=== PATIENT | male | born 1950 | race Caucasian/White ===

== ENCOUNTER 2020-10-11 19:32 | Inpatient (IN) | payer OTHER, MEDICARE ==
[2020-10-11 20:00] VITALS: BMI 30.8
[2020-10-11] MEDS ORDERED: PIPERACILLIN/TAZOB 3.375 GM 3.375 GM in DEXTROSE 5%-WATER - 50 ML IVPB ONE (20:28)
[2020-10-11] MEDS ORDERED: VANCOMYCIN 1 GM in D5W (PRE-DOCKED) 1,000 MG/250 ML IVPB ONE (20:29)
[2020-10-11] MEDS ORDERED: ACETAMINOPHEN 1000 MG/100 ML VIAL (NON FORMULARY) IVPB ONE (20:30)
[2020-10-11] MEDS ORDERED: ACETAMINOPHEN INJECTION 100 ML IVPB ONE (20:36)
[2020-10-11] MEDS ORDERED: PIPERACILLIN/TAZOB 3.375 GM 3.375 GM/50 ML BAG IVPB ONE (20:37)
[2020-10-11 20:39] LABS: BASO % 0.6 % (0-2.0); HEMATOCRIT 41.7 % (35.4-49); HEMOGLOBIN 14.3 GM/dL (11.7-16.9); LYMPH % 13.7 % (8-40); MCH 29.3 pg (25.7-33.7); MCHC 34.3 g/dl (32.0-35.9); MEAN CELL VOLUME 85.5 fl (80-96); MONO % 6.3 % (3.8-10.2); NEUT % 79.4 % (42.8-82.8); PLATELET COUNT 167 K/MM3 (134-434); RBC 4.88 M/mm3 (4.00-5.60); RDW 14.4 % (11.9-15.9); WHITE BLOOD COUNT 3.9 K/mm3 (4.0-10.0)
[2020-10-11 20:48] LABS: INR 1.17 (0.83-1.09); PROTHROMBIN TIME (PATIENT) 14.1 SEC (9.7-13.0)
[2020-10-11 20:50] LABS: ACTIVATED PTT 28.2 SECONDS (25.2-36.5)
[2020-10-11] MEDS ORDERED: MEROPENEM 1 GM in DEXTROSE 5%-WATER 100 ML IVPB ONE (20:53)
[2020-10-11] MEDS ORDERED: DEXAMETHASONE SOD PHOSPHATE 4 MG/1 ML VIAL IVPUSH ONE (20:57)
[2020-10-11 21:00] LABS: CHLORIDE 100 mmol/L (98-107); POTASSIUM 3.8 mmol/L (3.5-5.1); SODIUM 135 mmol/L (136-145)
[2020-10-11 21:02] LABS: CALCIUM 7.7 mg/dL (8.5-10.1)
[2020-10-11 21:03] LABS: ALBUMIN 2.9 g/dl (3.4-5.0); ANION GAP 6 MMOL/L (8-16); BLOOD UREA NITROGEN 18.4 mg/dL (7-18); CO2 29 mmol/L (21-32); GLUCOSE,RANDOM 112 mg/dL (74-106)
[2020-10-11 21:04] LABS: BILIRUBIN,DIRECT 0.4 mg/dL (0.0-0.2)
[2020-10-11 21:06] LABS: SGOT/AST 77 U/L (15-37); SGPT/ALT 52 U/L (13-61)
[2020-10-11 21:07] LABS: BILIRUBIN,TOTAL 0.8 mg/dL (0.2-1); TOT PROT 6.4 g/dl (6.4-8.2)
[2020-10-11 21:09] LABS: ALK PHOS 114 U/L (45-117)
[2020-10-11] MEDS ORDERED: MEROPENEM 1 GM VIAL (RESTRICTED TO ID) IVPB ONE (21:15)
[2020-10-11] MEDS ORDERED: VANCOMYCIN 1 GRAM (PRE-DOCKED) 1,000 MG/250 ML BAG IVPB ONE (21:15)
[2020-10-11] MEDS ORDERED: DEXAMETHASONE SOD PHOSPHATE 4 MG/1 ML VIAL ONE (21:15)
[2020-10-11 21:24] LABS: VENOUS BASE EXCESS 4.3 mmol/L (-2-2); VENOUS O2 SATURATION 88.4 % (70-80); VENOUS PCO2 33.7 mmHg (38-52); VENOUS PH 7.518 (7.310-7.410)
[2020-10-12 01:39] LABS: EPI CELLS 7 /uL (0-25.1); HYALINE CASTS 3 /uL (0-3.1); URINE APPEARANCE CLEAR; URINE BACTERIA 21 /uL (0-1359); URINE BILIRUBIN NEGATIVE (NEGATIVE); URINE COLOR YELLOW; URINE GLUCOSE (UA) NEGATIVE (NEGATIVE); URINE KETONE TRACE (NEGATIVE); URINE LEUK ESTERASE NEGATIVE (NEGATIVE); URINE NITRITE NEGATIVE (NEGATIVE); URINE PROTEIN 1+ (NEGATIVE); URINE RBC 13 /uL (0-23.9); URINE WBC 6 /uL (0-25.8)
[2020-10-12] MEDS ORDERED: DEXTROSE 5%-WATER 100 ML IVPB ONE ×2 (01:55→08:59)
[2020-10-12] MEDS ORDERED: MEROPENEM 500 MG VIAL (RESTRICTED TO ID) IVPB ONE ×2 (01:55→08:59)
[2020-10-12] MEDS: MEROPENEM 500 MG in DEXTROSE 5%-WATER 100 ML IVPB SCH ×2 (01:58→10:06)
[2020-10-12] MEDS ORDERED: MEROPENEM 500 MG in DEXTROSE 5%-WATER 100 ML IVPB SCH (02:00)
[2020-10-12 09:06] LABS: BASO % 0.2 % (0-2.0); HEMATOCRIT 44.6 % (35.4-49); HEMOGLOBIN 15.4 GM/dL (11.7-16.9); MCH 29.1 pg (25.7-33.7); MCHC 34.6 g/dl (32.0-35.9); MEAN CELL VOLUME 84.2 fl (80-96); MEAN PLT VOLUME 8.8 fl (7.5-11.1); MONO % 6.3 % (3.8-10.2); NEUT % 80.5 % (42.8-82.8); PLATELET COUNT 171 K/MM3 (134-434); RBC 5.29 M/mm3 (4.00-5.60); RDW 14.8 % (11.9-15.9); WHITE BLOOD COUNT 3.3 K/mm3 (4.0-10.0)
[2020-10-12] MEDS: ENOXAPARIN NA (PORCINE) 40 MG/0.4 ML DISP.SYRIN SQ SCH (09:22)
[2020-10-12] MEDS: ZINC SULFATE 220 MG CAPSULE (FP) PO SCH (09:22)
[2020-10-12] MEDS: ASCORBIC ACID 500 MG TABLET (FP) PO SCH ×2 (09:22→21:21)
[2020-10-12 09:32] LABS: POTASSIUM 4.2 mmol/L (3.5-5.1)
[2020-10-12] MEDS ORDERED: CHOLECALCIFEROL (VIT D3) 5000 UNITS (125 MCG) CAP PO SCH (10:00)
[2020-10-12] MEDS ORDERED: VANCOMYCIN 1 GM in D5W (PRE-DOCKED) 1,000 MG/250 ML IVPB SCH (10:00)
[2020-10-12 10:18] LABS: ALBUMIN 2.9 g/dl (3.4-5.0); CALCIUM 8.2 mg/dL (8.5-10.1); MAGNESIUM 2.2 mg/dL (1.8-2.4)
[2020-10-12 10:21] LABS: CREATININE 0.9 mg/dL (0.55-1.3); TOT PROT 6.4 g/dl (6.4-8.2)
[2020-10-12 10:38] LABS: BILIRUBIN,TOTAL 0.9 mg/dL (0.2-1)
[2020-10-12] MEDS ORDERED: cefTRIAXone SODIUM 1 GM VIAL ONE (13:26)
[2020-10-12] MEDS ORDERED: DEXTROSE 5%-WATER - 50 ML IVPB ONE (13:26)
[2020-10-12] MEDS: CHOLECALCIFEROL (VIT D3) 1,000 UNIT (25 MCG) TABLET PO SCH (13:45)
[2020-10-12] MEDS: DEXAMETHASONE SOD PHOSPHATE 4 MG/1 ML VIAL IVPUSH SCH (13:46)
[2020-10-12] MEDS: CEFTRIAXONE 1 GM in DEXTROSE 5%-WATER - 50 ML IVPB SCH (13:46)
[2020-10-12] MEDS: ACETAMINOPHEN 325 MG TABLET (FP) PO PRN ×2 (14:22→21:21)
[2020-10-12] MEDS ORDERED: REMDESIVIR 200 MG in SODIUM CHLORIDE 210 ML IVPB ONE (14:30)
[2020-10-12] MEDS: ATORVASTATIN CA 20 MG TABLET (FP) PO SCH (21:21)
[2020-10-13] MEDS ORDERED: DEXTROSE 5%-WATER - 50 ML IVPB ONE (10:45)
[2020-10-13] MEDS ORDERED: cefTRIAXone SODIUM 1 GM VIAL ONE (10:45)
[2020-10-13] MEDS: CHOLECALCIFEROL (VIT D3) 1,000 UNIT (25 MCG) TABLET PO SCH (11:19)
[2020-10-13] MEDS: DEXAMETHASONE SOD PHOSPHATE 4 MG/1 ML VIAL IVPUSH SCH (11:20)
[2020-10-13] MEDS: ZINC SULFATE 220 MG CAPSULE (FP) PO SCH (11:20)
[2020-10-13] MEDS: ASCORBIC ACID 500 MG TABLET (FP) PO SCH ×2 (11:21→21:58)
[2020-10-13] MEDS: ENOXAPARIN NA (PORCINE) 40 MG/0.4 ML DISP.SYRIN SQ SCH (11:32)
[2020-10-13] MEDS: CEFTRIAXONE 1 GM in DEXTROSE 5%-WATER - 50 ML IVPB SCH (11:32)
[2020-10-13] MEDS: REMDESIVIR 100 MG in SODIUM CHLORIDE 230 ML IVPB SCH (12:41)
[2020-10-13 12:58] LABS: HEMATOCRIT 45.5 % (35.4-49); HEMOGLOBIN 15.6 GM/dL (11.7-16.9); MCH 29.6 pg (25.7-33.7); MCHC 34.3 g/dl (32.0-35.9); MEAN CELL VOLUME 86.4 fl (80-96); MEAN PLT VOLUME 9.4 fl (7.5-11.1); PLATELET COUNT 204 K/MM3 (134-434); RBC 5.27 M/mm3 (4.00-5.60); RDW 14.7 % (11.9-15.9); WHITE BLOOD COUNT 7.6 K/mm3 (4.0-10.0)
[2020-10-13 13:01] LABS: POTASSIUM 4.3 mmol/L (3.5-5.1)
[2020-10-13 13:05] LABS: CALCIUM 8.1 mg/dL (8.5-10.1)
[2020-10-13 13:06] LABS: BLOOD UREA NITROGEN 21.9 mg/dL (7-18)
[2020-10-13 13:10] LABS: BILIRUBIN,TOTAL 0.6 mg/dL (0.2-1); TOT PROT 6.9 g/dl (6.4-8.2)
[2020-10-13] MEDS: NEOMYCIN/POLYMYXIN/BACITRACIN (TRIPLE ANTIBIOTIC) 28 GM OINTMENT TP SCH (14:34)
[2020-10-13] MEDS: ATORVASTATIN CA 20 MG TABLET (FP) PO SCH (21:58)
[2020-10-14] MEDS ORDERED: cefTRIAXone SODIUM 1 GM VIAL ONE (10:19)
[2020-10-14] MEDS ORDERED: DEXTROSE 5%-WATER - 50 ML IVPB ONE (10:19)
[2020-10-14] MEDS: CEFTRIAXONE 1 GM in DEXTROSE 5%-WATER - 50 ML IVPB SCH (10:21)
[2020-10-14] MEDS: ASCORBIC ACID 500 MG TABLET (FP) PO SCH ×2 (10:21→21:30)
[2020-10-14] MEDS: ENOXAPARIN NA (PORCINE) 40 MG/0.4 ML DISP.SYRIN SQ SCH (10:22)
[2020-10-14] MEDS: PANTOPRAZOLE SODIUM 40 MG VIAL IVPUSH SCH (10:22)
[2020-10-14] MEDS: NEOMYCIN/POLYMYXIN/BACITRACIN (TRIPLE ANTIBIOTIC) 28 GM OINTMENT TP SCH (10:22)
[2020-10-14] MEDS: DEXAMETHASONE SOD PHOSPHATE 4 MG/1 ML VIAL IVPUSH SCH (10:22)
[2020-10-14] MEDS: CHOLECALCIFEROL (VIT D3) 1,000 UNIT (25 MCG) TABLET PO SCH (10:22)
[2020-10-14] MEDS: ZINC SULFATE 220 MG CAPSULE (FP) PO SCH (10:22)
[2020-10-14] MEDS: REMDESIVIR 100 MG in SODIUM CHLORIDE 230 ML IVPB SCH (10:57)
[2020-10-14 11:00] LABS: HEMATOCRIT 42.2 % (35.4-49); HEMOGLOBIN 14.4 GM/dL (11.7-16.9); MCHC 34.1 g/dl (32.0-35.9); MEAN CELL VOLUME 84.8 fl (80-96); MEAN PLT VOLUME 9.4 fl (7.5-11.1); PLATELET COUNT 218 K/MM3 (134-434); RBC 4.97 M/mm3 (4.00-5.60); RDW 14.4 % (11.9-15.9); WHITE BLOOD COUNT 3.8 K/mm3 (4.0-10.0)
[2020-10-14 11:15] LABS: POTASSIUM 3.6 mmol/L (3.5-5.1)
[2020-10-14 11:20] LABS: ALBUMIN 2.6 g/dl (3.4-5.0); BLOOD UREA NITROGEN 23.9 mg/dL (7-18); CALCIUM 8.2 mg/dL (8.5-10.1); MAGNESIUM 2.4 mg/dL (1.8-2.4)
[2020-10-14 11:23] LABS: CREATININE 0.9 mg/dL (0.55-1.3)
[2020-10-14 11:26] LABS: BILIRUBIN,TOTAL 0.6 mg/dL (0.2-1)
[2020-10-15 09:29] LABS: BASO % 0.1 % (0-2.0); HEMATOCRIT 43.4 % (35.4-49); LYMPH % 19.9 % (8-40); MCH 29.3 pg (25.7-33.7); MCHC 34.7 g/dl (32.0-35.9); MEAN CELL VOLUME 84.5 fl (80-96); MEAN PLT VOLUME 9.2 fl (7.5-11.1); MONO % 13.4 % (3.8-10.2); NEUT % 66.6 % (42.8-82.8); PLATELET COUNT 264 K/MM3 (134-434); RBC 5.13 M/mm3 (4.00-5.60); RDW 14.1 % (11.9-15.9); WHITE BLOOD COUNT 3.7 K/mm3 (4.0-10.0)
[2020-10-15] MEDS ORDERED: cefTRIAXone SODIUM 1 GM VIAL ONE (09:34)
[2020-10-15] MEDS ORDERED: DEXTROSE 5%-WATER - 50 ML IVPB ONE (09:34)
[2020-10-15 09:49] LABS: POTASSIUM 4.3 mmol/L (3.5-5.1)
[2020-10-15] MEDS: PANTOPRAZOLE SODIUM 40 MG VIAL IVPUSH SCH (09:50)
[2020-10-15] MEDS: CHOLECALCIFEROL (VIT D3) 1,000 UNIT (25 MCG) TABLET PO SCH (09:53)
[2020-10-15] MEDS: ZINC SULFATE 220 MG CAPSULE (FP) PO SCH (09:53)
[2020-10-15] MEDS: ASCORBIC ACID 500 MG TABLET (FP) PO SCH ×2 (09:53→23:38)
[2020-10-15] MEDS: DEXAMETHASONE SOD PHOSPHATE 4 MG/1 ML VIAL IVPUSH SCH (09:55)
[2020-10-15 10:05] LABS: CALCIUM 8.1 mg/dL (8.5-10.1)
[2020-10-15 10:06] LABS: ALBUMIN 2.8 g/dl (3.4-5.0); MAGNESIUM 2.5 mg/dL (1.8-2.4)
[2020-10-15] MEDS: ENOXAPARIN NA (PORCINE) 40 MG/0.4 ML DISP.SYRIN SQ SCH (10:06)
[2020-10-15] MEDS: CEFTRIAXONE 1 GM in DEXTROSE 5%-WATER - 50 ML IVPB SCH (10:07)
[2020-10-15 10:08] LABS: CREATININE 0.8 mg/dL (0.55-1.3)
[2020-10-15 10:09] LABS: PHOSPHOROUS 3.4 mg/dL (2.5-4.9)
[2020-10-15 10:10] LABS: BILIRUBIN,TOTAL 0.6 mg/dL (0.2-1); TOT PROT 6.5 g/dl (6.4-8.2)
[2020-10-15] MEDS: REMDESIVIR 100 MG in SODIUM CHLORIDE 230 ML IVPB SCH (11:18)
[2020-10-15] MEDS: NEOMYCIN/POLYMYXIN/BACITRACIN (TRIPLE ANTIBIOTIC) 28 GM OINTMENT TP SCH (15:18)
[2020-10-16 09:30] LABS: BASO % 0.3 % (0-2.0); HEMATOCRIT 43.5 % (35.4-49); HEMOGLOBIN 15.1 GM/dL (11.7-16.9); LYMPH % 22.4 % (8-40); MCH 29.2 pg (25.7-33.7); MCHC 34.7 g/dl (32.0-35.9); MEAN CELL VOLUME 84.2 fl (80-96); MEAN PLT VOLUME 9.4 fl (7.5-11.1); MONO % 10.9 % (3.8-10.2); NEUT % 66.4 % (42.8-82.8); PLATELET COUNT 291 K/MM3 (134-434); RBC 5.17 M/mm3 (4.00-5.60); RDW 14.2 % (11.9-15.9)
[2020-10-16 09:53] LABS: POTASSIUM 4.2 mmol/L (3.5-5.1)
[2020-10-16] MEDS ORDERED: DEXTROSE 5%-WATER - 50 ML IVPB ONE (09:58)
[2020-10-16] MEDS ORDERED: cefTRIAXone SODIUM 1 GM VIAL ONE (09:58)
[2020-10-16] MEDS: ENOXAPARIN NA (PORCINE) 40 MG/0.4 ML DISP.SYRIN SQ SCH (10:20)
[2020-10-16] MEDS: ASCORBIC ACID 500 MG TABLET (FP) PO SCH (10:20)
[2020-10-16] MEDS: DEXAMETHASONE SOD PHOSPHATE 4 MG/1 ML VIAL IVPUSH SCH (10:20)
[2020-10-16] MEDS: CEFTRIAXONE 1 GM in DEXTROSE 5%-WATER - 50 ML IVPB SCH (10:20)
[2020-10-16] MEDS: NEOMYCIN/POLYMYXIN/BACITRACIN (TRIPLE ANTIBIOTIC) 28 GM OINTMENT TP SCH (10:21)
[2020-10-16] MEDS: ZINC SULFATE 220 MG CAPSULE (FP) PO SCH (10:21)
[2020-10-16] MEDS: CHOLECALCIFEROL (VIT D3) 1,000 UNIT (25 MCG) TABLET PO SCH (10:21)
[2020-10-16] MEDS: PANTOPRAZOLE SODIUM 40 MG VIAL IVPUSH SCH (10:21)
[2020-10-16 10:45] LABS: CALCIUM 8.4 mg/dL (8.5-10.1)
[2020-10-16 10:46] LABS: ALBUMIN 2.8 g/dl (3.4-5.0); BLOOD UREA NITROGEN 24.4 mg/dL (7-18); MAGNESIUM 2.5 mg/dL (1.8-2.4)
[2020-10-16 10:49] LABS: CREATININE 0.8 mg/dL (0.55-1.3)
[2020-10-16 10:50] LABS: PHOSPHOROUS 3.5 mg/dL (2.5-4.9)
[2020-10-16 10:51] LABS: BILIRUBIN,TOTAL 0.6 mg/dL (0.2-1); TOT PROT 6.4 g/dl (6.4-8.2)
[2020-10-16 10:52] VITALS: BP 127/75; PULSE 56; TEMP 97.9
[2020-10-16] MEDS: REMDESIVIR 100 MG in SODIUM CHLORIDE 230 ML IVPB SCH (13:03)
== END 2020-10-16 15:42 | disposition home or self-care (01) | DRG 871 ==
LOC: JER 19:32 → JERBED 23:15 → J5S 10-12 01:49
PROVIDERS: ADMIT Internal Medicine
PROC: XW033E5 Introduction of Remdesivir Anti-infective into Peripheral Vein, Percutaneous Approach, New Technology Group 5 (ICD-10-PCS; principal; 2020-10-12)
PROC: XW13325 Transfusion of Convalescent Plasma (Nonautologous) into Peripheral Vein, Percutaneous Approach, New Technology Group 5 (ICD-10-PCS; 2020-10-12)
PROC: 0HBMXZZ Excision of Right Foot Skin, External Approach (ICD-10-PCS; 2020-10-12)
DX: A41.89 Other specified sepsis (principal); J96.01 Acute respiratory failure with hypoxia; U07.1 COVID-19; J12.82 Pneumonia due to coronavirus disease 2019; L03.115 Cellulitis of right lower limb; E78.5 Hyperlipidemia, unspecified; Z88.0 Allergy status to penicillin; E66.9 Obesity, unspecified; Z68.31 Body mass index [BMI] 31.0-31.9, adult; L57.0 Actinic keratosis
CPT/HCPCS: 36415; 36430; 71045-TC-FY; 73630-TC-RT-FY; 80053; 81003; 82248; 82550; 82553; 82728; 82803; 83605; 83615; 83735; 84100; 84484; 85025; 85027; 85379; 85610; 85730; 86140; 86769; 86850; 86900; 86901; 87040; 87070; 87086; 87205; 87804; 93005; 93010; 93971-TC; 94761; 99285-25; C9399; C9803; J0131; P9017; U0003

== ENCOUNTER 2022-06-08 08:11 | Inpatient (IN) | payer OTHER, MEDICARE ==
[2022-06-08] MEDS ORDERED: VANCOMYCIN 1 GM in D5W (PRE-DOCKED) 1,000 MG/250 ML IVPB ONE (09:39)
[2022-06-08] MEDS ORDERED: CEFEPIME HCL/D5W 1 GM/50 ML BAG IVPB ONE (09:40)
[2022-06-08] MEDS ORDERED: VANCOMYCIN/WATER FOR INJ (PEG) 1,000 MG/200 ML BAG IVPB ONE (11:27)
[2022-06-08] MEDS ORDERED: CEFEPIME 1 GM/100 ML BAG IVPB ONE (11:28)
[2022-06-08 12:45] LABS: INR 1.07 (0.83-1.09); PROTHROMBIN TIME (PATIENT) 12.3 SEC (9.7-13.0)
[2022-06-08 12:48] LABS: ACTIVATED PTT 31.2 SECONDS (25.2-36.5)
[2022-06-08 12:52] LABS: BASO % 0.7 % (0-2.0); EOS % 0.8 % (0-4.5); HEMATOCRIT 46.3 % (35.4-49); HEMOGLOBIN 15.9 GM/dL (11.7-16.9); LYMPH % 21.5 % (8-40); MCH 29.9 pg (25.7-33.7); MCHC 34.4 g/dl (32.0-35.9); MEAN CELL VOLUME 87.1 fl (80-96); MEAN PLT VOLUME 8.9 fl (7.5-11.1); MONO % 5.7 % (3.8-10.2); NEUT % 71.3 % (42.8-82.8); PLATELET COUNT 286 10^3/uL (134-434); RBC 5.32 M/mm3 (4.00-5.60); RDW 14.5 % (11.9-15.9); WHITE BLOOD COUNT 5.7 K/mm3 (4.0-10.0)
[2022-06-08 12:58] LABS: CALCIUM 9.6 mg/dL (8.5-10.1)
[2022-06-08 12:59] LABS: ALBUMIN 3.9 g/dl (3.4-5.0); BLOOD UREA NITROGEN 16.9 mg/dL (7-18)
[2022-06-08 13:03] LABS: BILIRUBIN,TOTAL 0.7 mg/dL (0.2-1); TOT PROT 7.2 g/dl (6.4-8.2)
[2022-06-08] MEDS ORDERED: ACETAMINOPHEN 325 MG TABLET (FP) PO PRN (14:49)
[2022-06-08 20:36] VITALS: BMI 32.2
[2022-06-09 09:29] LABS: BASO % 0.9 % (0-2.0); EOS % 2.4 % (0-4.5); LYMPH % 24.1 % (8-40); MCH 29.7 pg (25.7-33.7); MEAN CELL VOLUME 87.3 fl (80-96); MEAN PLT VOLUME 8.9 fl (7.5-11.1); MONO % 7.5 % (3.8-10.2); NEUT % 65.1 % (42.8-82.8); PLATELET COUNT 243 10^3/uL (134-434); RBC 5.04 M/mm3 (4.00-5.60); RDW 14.8 % (11.9-15.9); WHITE BLOOD COUNT 4.9 K/mm3 (4.0-10.0)
[2022-06-09 09:54] LABS: ALBUMIN 3.5 g/dl (3.4-5.0); BLOOD UREA NITROGEN 20.4 mg/dL (7-18); CALCIUM 9.2 mg/dL (8.5-10.1)
[2022-06-09 09:59] LABS: BILIRUBIN,TOTAL 0.7 mg/dL (0.2-1); TOT PROT 6.5 g/dl (6.4-8.2)
[2022-06-09] MEDS ORDERED: PANTOPRAZOLE 40 MG TABLET PO SCH (10:00)
[2022-06-09] MEDS ORDERED: ATORVASTATIN CA 10 MG TABLET (FP) PO SCH (10:00)
[2022-06-09] MEDS ORDERED: NEOMYCIN/POLYMYXIN/BACITRACIN (TRIPLE ANTIBIOTIC) 28 GM OINTMENT TP SCH (10:00)
[2022-06-09] MEDS ORDERED: LIDOCAINE HCL 1%, 10 MG/ML (20ML VIAL) NR ONE ×2 (13:19)
[2022-06-09] MEDS ORDERED: LACTATED RINGERS SOLUTION 1,000 ML IV SCH (13:45)
[2022-06-09] MEDS ORDERED: ACETAMINOPHEN 325 MG TABLET (FP) PO PRN (13:45)
[2022-06-09] MEDS ORDERED: CEFTRIAXONE 1 GM in DEXTROSE 5%-WATER - 50 ML IVPB ONE (18:21)
[2022-06-09] MEDS: ATORVASTATIN CA 10 MG TABLET (FP) PO SCH ×2 (21:43→21:54)
[2022-06-09] MEDS: CEFEPIME 2 GM in DEXTROSE 5%-WATER 100 ML IVPB SCH (21:43)
[2022-06-09] MEDS: VANCOMYCIN/WATER FOR INJ (PEG) 1,000 MG/200 ML BAG IVPB SCH (21:55)
[2022-06-10] MEDS: CEFEPIME 2 GM in DEXTROSE 5%-WATER 100 ML IVPB SCH ×3 (01:18→17:16)
[2022-06-10 08:04] LABS: BASO % 0.5 % (0-2.0); EOS % 2.8 % (0-4.5); HEMATOCRIT 45.6 % (35.4-49); HEMOGLOBIN 15.4 GM/dL (11.7-16.9); LYMPH % 24.3 % (8-40); MCH 29.4 pg (25.7-33.7); MCHC 33.7 g/dl (32.0-35.9); MEAN CELL VOLUME 87.2 fl (80-96); MEAN PLT VOLUME 9.2 fl (7.5-11.1); MONO % 7.4 % (3.8-10.2); PLATELET COUNT 256 10^3/uL (134-434); RBC 5.23 M/mm3 (4.00-5.60); RDW 14.7 % (11.9-15.9); WHITE BLOOD COUNT 5.8 K/mm3 (4.0-10.0)
[2022-06-10 08:17] LABS: BLOOD UREA NITROGEN 18.5 mg/dL (7-18); CALCIUM 8.9 mg/dL (8.5-10.1); MAGNESIUM 2.4 mg/dL (1.8-2.4)
[2022-06-10 08:21] LABS: CREATININE 0.9 mg/dL (0.55-1.3)
[2022-06-10] MEDS: VANCOMYCIN/WATER FOR INJ (PEG) 1,000 MG/200 ML BAG IVPB SCH ×2 (09:17→21:07)
[2022-06-10] MEDS: ENOXAPARIN NA (PORCINE) 40 MG/0.4 ML DISP.SYRIN SQ SCH ×2 (09:18→09:38)
[2022-06-10] MEDS: PANTOPRAZOLE 40 MG TABLET PO SCH (09:19)
[2022-06-10] MEDS: NEOMYCIN/POLYMYXIN/BACITRACIN (TRIPLE ANTIBIOTIC) 28 GM OINTMENT TP SCH (09:20)
[2022-06-10] MEDS: ATORVASTATIN CA 10 MG TABLET (FP) PO SCH (21:07)
[2022-06-10] MEDS ORDERED: ATORVASTATIN CA 10 MG TABLET (FP) PO SCH (22:00)
[2022-06-11] MEDS: CEFEPIME 2 GM in DEXTROSE 5%-WATER 100 ML IVPB SCH ×2 (01:13→11:08)
[2022-06-11 08:49] VITALS: RESP 18
[2022-06-11 09:11] LABS: EOS % 2.6 % (0-4.5); HEMATOCRIT 44.6 % (35.4-49); HEMOGLOBIN 15.1 GM/dL (11.7-16.9); LYMPH % 20.4 % (8-40); MCH 29.7 pg (25.7-33.7); MEAN CELL VOLUME 87.3 fl (80-96); MEAN PLT VOLUME 8.9 fl (7.5-11.1); MONO % 8.2 % (3.8-10.2); NEUT % 67.8 % (42.8-82.8); PLATELET COUNT 247 10^3/uL (134-434); RDW 14.6 % (11.9-15.9); WHITE BLOOD COUNT 5.9 K/mm3 (4.0-10.0)
[2022-06-11 09:41] LABS: ALBUMIN 3.5 g/dl (3.4-5.0); BLOOD UREA NITROGEN 16.1 mg/dL (7-18); CALCIUM 9.4 mg/dL (8.5-10.1); MAGNESIUM 2.3 mg/dL (1.8-2.4)
[2022-06-11 09:45] LABS: BILIRUBIN,TOTAL 0.7 mg/dL (0.2-1); PHOSPHOROUS 3.4 mg/dL (2.5-4.9)
[2022-06-11 09:46] LABS: TOT PROT 6.6 g/dl (6.4-8.2)
[2022-06-11] MEDS: ENOXAPARIN NA (PORCINE) 40 MG/0.4 ML DISP.SYRIN SQ SCH (11:07)
[2022-06-11] MEDS: NEOMYCIN/POLYMYXIN/BACITRACIN (TRIPLE ANTIBIOTIC) 28 GM OINTMENT TP SCH (11:08)
[2022-06-11] MEDS: PANTOPRAZOLE 40 MG TABLET PO SCH (11:08)
[2022-06-11] MEDS: VANCOMYCIN/WATER FOR INJ (PEG) 1,000 MG/200 ML BAG IVPB SCH (12:28)
[2022-06-11 13:41] VITALS: BP 114/72; PULSE 75; TEMP 98
== END 2022-06-11 16:30 | disposition home or self-care (01) | DRG 593 ==
LOC: JER 08:11 → INTOOBSV 09:40 → UNDOADMOB 09:40 → JERBED 09:40 → UNDOADMOB 14:49 → JERBED 14:49 → OBSVTOIN 15:44 → INTOOBSV 15:44 → J7W 17:11 → JERBED 17:11 → J7W 06-10 15:44 → OBSVTOIN 06-10 15:44
PROVIDERS: ADMIT Internal Medicine; ATTEND Internal Medicine
PROC: 07DT3ZX Extraction of Bone Marrow, Percutaneous Approach, Diagnostic (ICD-10-PCS; principal; 2022-06-09 13:00)
DX: L97.519 Non-pressure chronic ulcer of other part of right foot with unspecified severity (principal); L03.115 Cellulitis of right lower limb; E78.5 Hyperlipidemia, unspecified; G62.9 Polyneuropathy, unspecified; Z88.0 Allergy status to penicillin
CPT/HCPCS: 36415; 80048; 80053; 82962; 83735; 84100; 85025; 85610; 85651; 85730; 86140; 86850; 86900; 86901; 87040; 87070; 87075; 87205; 93005; 93010; 94760; 99285-25; C9803-CS; G0480; U0003; U0005

== ENCOUNTER 2022-08-17 23:01 | Inpatient (IN) | payer OTHER, MEDICARE ==
[2022-08-17 23:21] VITALS: BMI 33.0
[2022-08-17] MEDS ORDERED: VANCOMYCIN 1 GM in D5W (PRE-DOCKED) 1,000 MG/250 ML IVPB ONE (23:29)
[2022-08-17] MEDS ORDERED: CEFEPIME HCL/D5W 2 GM/50 ML BAG IVPB ONE (23:30)
[2022-08-18 00:09] LABS: HEMATOCRIT 43.3 % (35.4-49); HEMOGLOBIN 14.1 GM/dL (11.7-16.9); MCH 28.4 pg (25.7-33.7); MCHC 32.6 g/dl (32.0-35.9); MEAN CELL VOLUME 87.1 fl (80-96); MEAN PLT VOLUME 8.5 fl (7.5-11.1); PLATELET COUNT 216 10^3/uL (134-434); RBC 4.97 M/mm3 (4.00-5.60); RDW 14.4 % (11.9-15.9); WHITE BLOOD COUNT 12.9 K/mm3 (4.0-10.0)
[2022-08-18] MEDS ORDERED: CEFEPIME 2 GM/100 ML BAG IVPB ONE (00:19)
[2022-08-18 00:25] LABS: INR 1.23 (0.83-1.09); PROTHROMBIN TIME (PATIENT) 14.2 SEC (9.7-13.0)
[2022-08-18 00:28] LABS: ACTIVATED PTT 25.8 SECONDS (25.2-36.5)
[2022-08-18 00:29] LABS: CHLORIDE 101 mmol/L (98-107); SODIUM 138 mmol/L (136-145)
[2022-08-18 00:31] LABS: ALBUMIN 3.3 g/dl (3.4-5.0); ANION GAP 13 MMOL/L (8-16); BLOOD UREA NITROGEN 21.1 mg/dL (7-18); CALCIUM 8.6 mg/dL (8.5-10.1); CO2 24 mmol/L (21-32)
[2022-08-18 00:32] LABS: GLUCOSE,RANDOM 156 mg/dL (74-106)
[2022-08-18 00:34] LABS: CREATININE 1.1 mg/dL (0.55-1.3); SGOT/AST 48 U/L (15-37)
[2022-08-18 00:35] LABS: SGPT/ALT 41 U/L (13-61)
[2022-08-18 00:37] LABS: ALK PHOS 102 U/L (45-117); BILIRUBIN,TOTAL 0.9 mg/dL (0.2-1); TOT PROT 6.1 g/dl (6.4-8.2)
[2022-08-18] MEDS ORDERED: LACTATED RINGERS SOLUTION 1000 ML INFUS.BAG IV ONE (00:46)
[2022-08-18] MEDS ORDERED: VANCOMYCIN/WATER FOR INJ (PEG) 1,000 MG/200 ML BAG IVPB ONE (00:50)
[2022-08-18 01:25] LABS: LACTIC ACID 2.3 mmol/L (0.4-2.0)
[2022-08-18 02:52] LABS: PH,URINE 5.5 (5.0-8.0); URINE APPEARANCE CLEAR; URINE BILIRUBIN NEGATIVE (NEGATIVE); URINE COLOR YELLOW; URINE GLUCOSE (UA) NEGATIVE (NEGATIVE); URINE KETONE NEGATIVE (NEGATIVE); URINE LEUK ESTERASE NEGATIVE (NEGATIVE); URINE NITRITE NEGATIVE (NEGATIVE); URINE PROTEIN NEGATIVE (NEGATIVE); URINE UROBILINOGEN 0.2 mg/dL (0.2-1.0)
[2022-08-18] MEDS: SODIUM CHLORIDE 1,000 ML IV SCH (04:36)
[2022-08-18 06:28] LABS: ANISOCYTOSIS 2+; MACROCYTOSIS 0
[2022-08-18] MEDS: ACETAMINOPHEN 1000 MG/100 ML BAG IVPB PRN ×3 (08:16→21:16)
[2022-08-18] MEDS ORDERED: CEFEPIME 2 GM in DEXTROSE 5%-WATER 100 ML IVPB SCH (10:00)
[2022-08-18 10:05] LABS: BASO % 0.9 % (0-2.0); HEMATOCRIT 39.4 % (35.4-49); HEMOGLOBIN 12.9 GM/dL (11.7-16.9); LYMPH % 2.7 % (8-40); MCH 28.2 pg (25.7-33.7); MCHC 32.8 g/dl (32.0-35.9); MEAN CELL VOLUME 86.2 fl (80-96); MEAN PLT VOLUME 8.5 fl (7.5-11.1); MONO % 5.1 % (3.8-10.2); NEUT % 91.3 % (42.8-82.8); PLATELET COUNT 178 10^3/uL (134-434); RBC 4.57 M/mm3 (4.00-5.60); RDW 14.6 % (11.9-15.9); WHITE BLOOD COUNT 11.1 K/mm3 (4.0-10.0)
[2022-08-18 10:35] LABS: ANISOCYTOSIS 0; HELMET CELLS 0; HOWELL-JOLLY BODIES 0; MACROCYTOSIS 0; OVALOCYTE 0; ROULEAU 0; SICKELED CELLS 0; TARGET CELLS 0; TEAR DROP CELLS 0; TOXIC GRANULATION 0
[2022-08-18] MEDS: ENOXAPARIN NA (PORCINE) 40 MG/0.4 ML DISP.SYRIN SQ SCH (11:15)
[2022-08-18] MEDS ORDERED: VANCOMYCIN HCL 1,500 MG in DEXTROSE 5%-WATER - 250 ML IVPB SCH (12:00)
[2022-08-18] MEDS: VANCOMYCIN PREMIX 1.5 GM 1,500 MG/300 ML BAG IVPB SCH (13:31)
[2022-08-18] MEDS: CEFEPIME 2 GM in DEXTROSE 5%-WATER 100 ML IVPB SCH (17:35)
[2022-08-19] MEDS: VANCOMYCIN PREMIX 1.5 GM 1,500 MG/300 ML BAG IVPB SCH ×2 (01:04→15:22)
[2022-08-19] MEDS: SODIUM CHLORIDE 1,000 ML IV SCH ×2 (02:47→09:10)
[2022-08-19] MEDS: CEFEPIME 2 GM in DEXTROSE 5%-WATER 100 ML IVPB SCH ×3 (03:07→18:08)
[2022-08-19] MEDS: ACETAMINOPHEN 325 MG TABLET (FP) PO PRN ×2 (05:58→18:07)
[2022-08-19] MEDS: FAMOTIDINE 20 MG TABLET PO SCH (09:09)
[2022-08-19] MEDS: ATORVASTATIN CA 10 MG TABLET (FP) PO SCH (09:10)
[2022-08-19] MEDS: ENOXAPARIN NA (PORCINE) 40 MG/0.4 ML DISP.SYRIN SQ SCH (09:10)
[2022-08-19 11:55] LABS: HEMATOCRIT 41.7 % (35.4-49); HEMOGLOBIN 13.6 GM/dL (11.7-16.9); MCH 28.5 pg (25.7-33.7); MCHC 32.5 g/dl (32.0-35.9); MEAN CELL VOLUME 87.6 fl (80-96); PLATELET COUNT 206 10^3/uL (134-434); RBC 4.76 M/mm3 (4.00-5.60); RDW 14.6 % (11.9-15.9); WHITE BLOOD COUNT 8.3 K/mm3 (4.0-10.0)
[2022-08-19 12:16] LABS: CALCIUM 8.5 mg/dL (8.5-10.1)
[2022-08-19 12:18] LABS: ALBUMIN 2.7 g/dl (3.4-5.0); MAGNESIUM 2.3 mg/dL (1.8-2.4)
[2022-08-19 12:21] LABS: PHOSPHOROUS 2.1 mg/dL (2.5-4.9)
[2022-08-19 12:22] LABS: BILIRUBIN,TOTAL 0.8 mg/dL (0.2-1); TOT PROT 5.8 g/dl (6.4-8.2)
[2022-08-19] MEDS ORDERED: LACTOBACILLUS ACIDOPHILUS 1 TABLET PO SCH (13:45)
[2022-08-19] MEDS ORDERED: NAPH,MB-DB/K PH,MBDB POWDER PACKET PO ONE (14:00)
[2022-08-19] MEDS: CLINDAMYCIN 900 MG PREMIX IVPB 900 MG/50 ML BAG IVPB SCH ×2 (14:04→17:22)
[2022-08-19] MEDS: LACTOBACILLUS ACIDOPHILUS 1 TABLET PO SCH (21:23)
[2022-08-20] MEDS: CLINDAMYCIN 900 MG PREMIX IVPB 900 MG/50 ML BAG IVPB SCH ×3 (01:10→17:47)
[2022-08-20] MEDS: CEFEPIME 2 GM in DEXTROSE 5%-WATER 100 ML IVPB SCH ×3 (01:40→17:48)
[2022-08-20] MEDS: SODIUM CHLORIDE 1,000 ML IV SCH ×2 (02:03→11:14)
[2022-08-20] MEDS: VANCOMYCIN PREMIX 1.5 GM 1,500 MG/300 ML BAG IVPB SCH ×2 (02:50→15:51)
[2022-08-20] MEDS: ENOXAPARIN NA (PORCINE) 40 MG/0.4 ML DISP.SYRIN SQ SCH (09:08)
[2022-08-20] MEDS: FAMOTIDINE 20 MG TABLET PO SCH (09:09)
[2022-08-20] MEDS: ATORVASTATIN CA 10 MG TABLET (FP) PO SCH (09:10)
[2022-08-20 12:54] LABS: HEMATOCRIT 41.4 % (35.4-49); HEMOGLOBIN 13.5 GM/dL (11.7-16.9); MCH 28.2 pg (25.7-33.7); MCHC 32.6 g/dl (32.0-35.9); MEAN CELL VOLUME 86.5 fl (80-96); MEAN PLT VOLUME 8.6 fl (7.5-11.1); PLATELET COUNT 212 10^3/uL (134-434); RBC 4.79 M/mm3 (4.00-5.60); RDW 14.3 % (11.9-15.9); WHITE BLOOD COUNT 7.3 K/mm3 (4.0-10.0)
[2022-08-20 13:15] LABS: CALCIUM 8.2 mg/dL (8.5-10.1)
[2022-08-20 13:16] LABS: ALBUMIN 2.8 g/dl (3.4-5.0); MAGNESIUM 2.2 mg/dL (1.8-2.4)
[2022-08-20] MEDS: LACTOBACILLUS ACIDOPHILUS 1 TABLET PO SCH (21:05)
[2022-08-21] MEDS: CLINDAMYCIN 900 MG PREMIX IVPB 900 MG/50 ML BAG IVPB SCH ×3 (01:00→17:33)
[2022-08-21] MEDS: CEFEPIME 2 GM in DEXTROSE 5%-WATER 100 ML IVPB SCH ×3 (01:33→18:19)
[2022-08-21] MEDS: VANCOMYCIN PREMIX 1.5 GM 1,500 MG/300 ML BAG IVPB SCH ×2 (02:11→15:26)
[2022-08-21] MEDS: SODIUM CHLORIDE 1,000 ML IV SCH (02:11)
[2022-08-21 06:46] VITALS: RESP 18
[2022-08-21] MEDS: FAMOTIDINE 20 MG TABLET PO SCH (10:31)
[2022-08-21] MEDS: ASCORBIC ACID 250 MG TABLET (FP) PO SCH (10:31)
[2022-08-21] MEDS: ATORVASTATIN CA 10 MG TABLET (FP) PO SCH (10:32)
[2022-08-21] MEDS: MULTIVITAMINS THER W-MINERALS COMBO TABLET (FP) PO SCH (10:32)
[2022-08-21] MEDS: ENOXAPARIN NA (PORCINE) 40 MG/0.4 ML DISP.SYRIN SQ SCH (11:22)
[2022-08-21 11:39] LABS: HEMATOCRIT 41.9 % (35.4-49); HEMOGLOBIN 13.7 GM/dL (11.7-16.9); MCH 28.3 pg (25.7-33.7); MCHC 32.7 g/dl (32.0-35.9); MEAN CELL VOLUME 86.5 fl (80-96); MEAN PLT VOLUME 8.8 fl (7.5-11.1); PLATELET COUNT 236 10^3/uL (134-434); RBC 4.84 M/mm3 (4.00-5.60); RDW 14.5 % (11.9-15.9); WHITE BLOOD COUNT 7.4 K/mm3 (4.0-10.0)
[2022-08-21 12:13] LABS: ALBUMIN 2.8 g/dl (3.4-5.0); BLOOD UREA NITROGEN 14.7 mg/dL (7-18); CALCIUM 8.6 mg/dL (8.5-10.1)
[2022-08-21 12:18] LABS: BILIRUBIN,TOTAL 1.3 mg/dL (0.2-1)
[2022-08-21] MEDS: LACTOBACILLUS ACIDOPHILUS 1 TABLET PO SCH (22:35)
[2022-08-22] MEDS: CLINDAMYCIN 900 MG PREMIX IVPB 900 MG/50 ML BAG IVPB SCH ×3 (01:39→17:05)
[2022-08-22] MEDS: CEFEPIME 2 GM in DEXTROSE 5%-WATER 100 ML IVPB SCH ×3 (02:21→17:07)
[2022-08-22] MEDS: VANCOMYCIN PREMIX 1.5 GM 1,500 MG/300 ML BAG IVPB SCH ×2 (03:32→14:19)
[2022-08-22 09:44] LABS: HEMOGLOBIN 13.6 GM/dL (11.7-16.9); MCH 28.5 pg (25.7-33.7); MCHC 33.2 g/dl (32.0-35.9); MEAN CELL VOLUME 85.8 fl (80-96); MEAN PLT VOLUME 8.7 fl (7.5-11.1); PLATELET COUNT 235 10^3/uL (134-434); RBC 4.78 M/mm3 (4.00-5.60); RDW 14.5 % (11.9-15.9); WHITE BLOOD COUNT 7.3 K/mm3 (4.0-10.0)
[2022-08-22] MEDS: FAMOTIDINE 20 MG TABLET PO SCH (09:54)
[2022-08-22] MEDS: ATORVASTATIN CA 10 MG TABLET (FP) PO SCH (09:55)
[2022-08-22] MEDS: MULTIVITAMINS THER W-MINERALS COMBO TABLET (FP) PO SCH (09:55)
[2022-08-22] MEDS: ENOXAPARIN NA (PORCINE) 40 MG/0.4 ML DISP.SYRIN SQ SCH (09:56)
[2022-08-22] MEDS: ASCORBIC ACID 250 MG TABLET (FP) PO SCH (09:56)
[2022-08-22 10:13] LABS: ALBUMIN 2.8 g/dl (3.4-5.0); BLOOD UREA NITROGEN 14.8 mg/dL (7-18); CALCIUM 8.6 mg/dL (8.5-10.1); CREATININE 1.1 mg/dL (0.55-1.3)
[2022-08-22] MEDS: LACTOBACILLUS ACIDOPHILUS 1 TABLET PO SCH (21:35)
[2022-08-23] MEDS: CEFEPIME 2 GM in DEXTROSE 5%-WATER 100 ML IVPB SCH ×3 (01:04→18:31)
[2022-08-23] MEDS: CLINDAMYCIN 900 MG PREMIX IVPB 900 MG/50 ML BAG IVPB SCH ×3 (02:11→17:29)
[2022-08-23] MEDS: VANCOMYCIN PREMIX 1.5 GM 1,500 MG/300 ML BAG IVPB SCH ×2 (02:50→13:35)
[2022-08-23] MEDS: ENOXAPARIN NA (PORCINE) 40 MG/0.4 ML DISP.SYRIN SQ SCH (09:22)
[2022-08-23] MEDS: ATORVASTATIN CA 10 MG TABLET (FP) PO SCH (09:23)
[2022-08-23] MEDS: MULTIVITAMINS THER W-MINERALS COMBO TABLET (FP) PO SCH (09:23)
[2022-08-23] MEDS: ASCORBIC ACID 250 MG TABLET (FP) PO SCH (09:23)
[2022-08-23] MEDS: FAMOTIDINE 20 MG TABLET PO SCH (09:23)
[2022-08-23 10:35] LABS: BASO % 0.9 % (0-2.0); EOS % 2.4 % (0-4.5); HEMATOCRIT 41.6 % (35.4-49); HEMOGLOBIN 13.7 GM/dL (11.7-16.9); LYMPH % 19.8 % (8-40); MCH 28.5 pg (25.7-33.7); MEAN CELL VOLUME 86.3 fl (80-96); MEAN PLT VOLUME 8.9 fl (7.5-11.1); NEUT % 69.9 % (42.8-82.8); PLATELET COUNT 265 10^3/uL (134-434); RBC 4.83 M/mm3 (4.00-5.60); RDW 14.6 % (11.9-15.9)
[2022-08-23 11:04] LABS: ALBUMIN 2.8 g/dl (3.4-5.0)
[2022-08-23 11:05] LABS: BILIRUBIN,TOTAL 0.9 mg/dL (0.2-1); BLOOD UREA NITROGEN 17.2 mg/dL (7-18); CALCIUM 8.5 mg/dL (8.5-10.1); PHOSPHOROUS 3.8 mg/dL (2.5-4.9)
[2022-08-23 11:06] LABS: CREATININE 1.1 mg/dL (0.55-1.3); MAGNESIUM 2.3 mg/dL (1.8-2.4); TOT PROT 6.2 g/dl (6.4-8.2)
[2022-08-23] MEDS: LACTOBACILLUS ACIDOPHILUS 1 TABLET PO SCH (21:56)
[2022-08-24] MEDS: CLINDAMYCIN 900 MG PREMIX IVPB 900 MG/50 ML BAG IVPB SCH ×2 (01:18→09:16)
[2022-08-24] MEDS: CEFEPIME 2 GM in DEXTROSE 5%-WATER 100 ML IVPB SCH ×3 (02:13→17:42)
[2022-08-24] MEDS: VANCOMYCIN PREMIX 1.5 GM 1,500 MG/300 ML BAG IVPB SCH ×2 (02:59→13:12)
[2022-08-24] MEDS: ENOXAPARIN NA (PORCINE) 40 MG/0.4 ML DISP.SYRIN SQ SCH (09:17)
[2022-08-24] MEDS: ATORVASTATIN CA 10 MG TABLET (FP) PO SCH (09:18)
[2022-08-24] MEDS: ASCORBIC ACID 250 MG TABLET (FP) PO SCH (09:18)
[2022-08-24] MEDS: FAMOTIDINE 20 MG TABLET PO SCH (09:18)
[2022-08-24] MEDS: MULTIVITAMINS THER W-MINERALS COMBO TABLET (FP) PO SCH (09:19)
[2022-08-24 10:46] LABS: HEMOGLOBIN 13.5 GM/dL (11.7-16.9); MCH 28.3 pg (25.7-33.7); MCHC 33.1 g/dl (32.0-35.9); MEAN CELL VOLUME 85.4 fl (80-96); MEAN PLT VOLUME 8.9 fl (7.5-11.1); PLATELET COUNT 278 10^3/uL (134-434); RBC 4.79 M/mm3 (4.00-5.60); RDW 14.6 % (11.9-15.9)
[2022-08-24 11:13] LABS: CALCIUM 8.5 mg/dL (8.5-10.1)
[2022-08-24 11:14] LABS: ALBUMIN 2.6 g/dl (3.4-5.0); BLOOD UREA NITROGEN 19.4 mg/dL (7-18)
[2022-08-24 11:17] LABS: CREATININE 1.2 mg/dL (0.55-1.3)
[2022-08-24 11:19] LABS: BILIRUBIN,TOTAL 0.6 mg/dL (0.2-1); TOT PROT 6.1 g/dl (6.4-8.2)
[2022-08-24] MEDS: LACTOBACILLUS ACIDOPHILUS 1 TABLET PO SCH (22:14)
[2022-08-25] MEDS: CEFEPIME 2 GM in DEXTROSE 5%-WATER 100 ML IVPB SCH ×3 (02:26→17:28)
[2022-08-25] MEDS: VANCOMYCIN PREMIX 1.5 GM 1,500 MG/300 ML BAG IVPB SCH (02:26)
[2022-08-25] MEDS: ASCORBIC ACID 250 MG TABLET (FP) PO SCH (09:10)
[2022-08-25] MEDS: ATORVASTATIN CA 10 MG TABLET (FP) PO SCH (09:10)
[2022-08-25] MEDS: FAMOTIDINE 20 MG TABLET PO SCH (09:10)
[2022-08-25] MEDS: ENOXAPARIN NA (PORCINE) 40 MG/0.4 ML DISP.SYRIN SQ SCH (09:10)
[2022-08-25] MEDS: MULTIVITAMINS THER W-MINERALS COMBO TABLET (FP) PO SCH (09:11)
[2022-08-25 10:38] LABS: HEMOGLOBIN 13.8 GM/dL (11.7-16.9); MCHC 33.7 g/dl (32.0-35.9); MEAN CELL VOLUME 86.1 fl (80-96); MEAN PLT VOLUME 9.2 fl (7.5-11.1); PLATELET COUNT 315 10^3/uL (134-434); RBC 4.76 M/mm3 (4.00-5.60); RDW 14.7 % (11.9-15.9); WHITE BLOOD COUNT 6.1 K/mm3 (4.0-10.0)
[2022-08-25 10:58] LABS: MAGNESIUM 2.5 mg/dL (1.8-2.4)
[2022-08-25 11:14] LABS: ANISOCYTOSIS 0; MACROCYTOSIS 0
[2022-08-25 12:05] LABS: CALCIUM 8.8 mg/dL (8.5-10.1)
[2022-08-25 12:06] LABS: ALBUMIN 2.8 g/dl (3.4-5.0); BLOOD UREA NITROGEN 19.6 mg/dL (7-18)
[2022-08-25 12:09] LABS: CREATININE 1.1 mg/dL (0.55-1.3)
[2022-08-25 12:11] LABS: BILIRUBIN,TOTAL 0.6 mg/dL (0.2-1); TOT PROT 6.6 g/dl (6.4-8.2)
[2022-08-25] MEDS: LACTOBACILLUS ACIDOPHILUS 1 TABLET PO SCH (21:57)
[2022-08-26] MEDS: CEFEPIME 2 GM in DEXTROSE 5%-WATER 100 ML IVPB SCH ×2 (01:55→09:15)
[2022-08-26] MEDS: ATORVASTATIN CA 10 MG TABLET (FP) PO SCH (09:15)
[2022-08-26] MEDS: MULTIVITAMINS THER W-MINERALS COMBO TABLET (FP) PO SCH (09:15)
[2022-08-26] MEDS: ASCORBIC ACID 250 MG TABLET (FP) PO SCH (09:15)
[2022-08-26] MEDS: ENOXAPARIN NA (PORCINE) 40 MG/0.4 ML DISP.SYRIN SQ SCH ×2 (09:15→09:21)
[2022-08-26] MEDS: FAMOTIDINE 20 MG TABLET PO SCH (09:15)
[2022-08-26 13:27] VITALS: BP 151/79; PULSE 59; TEMP 97.9
== END 2022-08-26 14:38 | disposition home or self-care (01) | DRG 872 ==
LOC: JER 23:01 → JERBED 08-18 00:57 → J6S 08-18 09:30
PROVIDERS: ADMIT Family Medicine; ATTEND Internal Medicine
DX: A41.9 Sepsis, unspecified organism (principal); L03.116 Cellulitis of left lower limb; L97.329 Non-pressure chronic ulcer of left ankle with unspecified severity; L03.115 Cellulitis of right lower limb; E78.5 Hyperlipidemia, unspecified; G60.0 Hereditary motor and sensory neuropathy; E11.42 Type 2 diabetes mellitus with diabetic polyneuropathy
CPT/HCPCS: 0241U-QW; 36415; 71045-TC-FY; 73610-TC-LT-FY; 73610-TC-RT-FY; 73630-TC-LT; 73630-TC-RT-FY; 73718-TC-LT; 73718-TC-RT; 80048; 80053; 81003; 82550; 82553; 83605; 83735; 84100; 84484; 85025; 85027; 85610; 85651; 85730; 86140; 86850; 86900; 86901; 87040; 87070; 87077; 87086; 87205; 93005; 93010; 93306-TC; 93970-TC; 99285-25; G0480